=== PATIENT | male | born 1955 | race African-American/Black ===

== ENCOUNTER 2017-09-13 11:14 | Emergency (ER) | payer SELFPAY ==
[~2017-09-13] VITALS: Ht 170.2 cm; Wt 66.0 kg
[2017-09-13 11:37] VITALS: BP 116/74
== END 2017-09-13 17:37 | disposition left against medical advice (07) ==
LOC: ER 15:56
DX: H92.02 Otalgia, left ear (principal)
CPT/HCPCS: 99281

== ENCOUNTER 2019-10-24 19:22 | Emergency (ER) | payer SELFPAY ==
[~2019-10-24] VITALS: Ht 170.2 cm; Wt 66.0 kg
[2019-10-24 19:28] VITALS: BP 115/70
[2019-10-24] MEDS ORDERED: ACETAMINOPHEN 325MG TABLET PO ONE (20:15)
== END 2019-10-24 20:43 | disposition home or self-care (01) ==
LOC: ER 19:22
DX: H26.9 Unspecified cataract (principal); H92.03 Otalgia, bilateral; H61.21 Impacted cerumen, right ear
CPT/HCPCS: 99282

== ENCOUNTER 2020-07-11 06:40 | Emergency (ER) | payer SELFPAY ==
[~2020-07-11] VITALS: Ht 167.6 cm; Wt 55.0 kg
[2020-07-11 07:02] VITALS: BP 122/85
[2020-07-11] MEDS ORDERED: PERM60CR4 TP (08:02)
== END 2020-07-11 08:14 | disposition home or self-care (01) ==
LOC: ER 06:40
DX: B86 Scabies (principal); H61.23 Impacted cerumen, bilateral; F20.9 Schizophrenia, unspecified
CPT/HCPCS: 99281

== ENCOUNTER 2021-06-04 23:55 | Emergency (ER) | payer SELFPAY ==
[~2021-06-04] VITALS: Ht 172.7 cm; Wt 59.0 kg
[~2021-06-04 23:55] MED LIST: PERM60CR4 TP
[2021-06-04 23:58] VITALS: BP 145/85
[2021-06-05] MEDS ORDERED: AMOX-424 MT (01:59)
== END 2021-06-05 02:00 | disposition home or self-care (01) ==
LOC: ER 23:55
DX: H66.93 Otitis media, unspecified, bilateral (principal); F20.9 Schizophrenia, unspecified
CPT/HCPCS: 99283